=== PATIENT | female | born 1950 | race Caucasian/White ===

== ENCOUNTER 2017-03-26 16:40 | Emergency (ER) | payer MEDICARE ==
[2017-03-26 16:56] VITALS: BP 145/80
--- NOTE | 2017-03-26 17:13 | UC ---
Respiratory Complaint HPI - HPI Summary HPI Summary: C/O cough with SOB, some left sided CP under the left axilla. Fevers, sweats, chills, sinus FLORES, ST, neck glands. Decreased appetite. Sputum has gone from yellow to green. - History of Current Complaint Stated Complaint: FLU LIKE SYMPTOMS Time Seen by Provider: 03/26/17 16:48 Hx Obtained From: Patient Hx Last Menstrual Period: years ago Onset/Duration: Gradual Onset, Lasting Weeks - 1, Worse Since - onset Timing: Constant Severity Initially: Mild Severity Currently: Moderate Character: Cough: Productive Aggravating Factors: Deep Breaths Associated Signs And Symptoms: Positive: Dyspnea, Fever, Chills, Pleuritic Chest Pain, URI, Nasal Congestion, Sinus Discomfort Related History: Seasonal Allergies - Risk Factors Pulmonary Embolism Risk Factors: Negative Cardiac Risk Factors: Negative - Allergies/Home Medications Allergies/Adverse Reactions: Allergies Allergy/AdvReac Type Severity Reaction Status Date / Time Codeine Allergy Vomiting Verified 03/26/17 16:56 Erythromycin Allergy Vomiting Verified 03/26/17 16:56 food color Allergy Congestion Uncoded 03/26/17 16:56 PMH/Surg Hx/FS Hx/Imm Hx Endocrine History: Dyslipidemia GI/ History: Gastroesophageal Reflux - Surgical History Surgical History: Yes Surgery Procedure, Year, and Place: 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 POLYCYSTIC RT OVARY REMOVED. TUBAL LIGATION. HERNIA 2007 and others right and left abdomen with mesh-last hernia surgery was 08/[address] Ventura [facility] ; 11/13/13 Left hip replacement Francia MICHAEL, right hip replacement. TONSILS AGE 4; right hip replacement 02/2014. APPENDECTOMY. ILEOSTOMY AT [facility] 02/27/07, and reversal - Family History Known Family History: Positive: Diabetes - Social History Occupation: Retired Lives: With Family Alcohol Use: Rare Substance Use Type: None Smoking Status (MU): Former Smoker - Immunization History Most Recent Influenza Vaccination: none Review of Systems Constitutional: Fever ENT: Sore Throat, Sinus Congestion, Sinus Pain/Tenderness Respiratory: Shortness Of Breath, Cough Cardiovascular: Chest Pain - left sided under the axilla Neurological: Numbness - intermittant in the right palm. Is Patient Immunocompromised?: No All Other Systems Reviewed And Are Negative: Yes Physical Exam Triage Information Reviewed: Yes Appearance: No Pain Distress, Well-Nourished, Ill-Appearing Vital Signs: Initial Vital Signs Temp 100.9 F 03/26/17 16:44 Pulse 104 03/26/17 16:44 Resp 18 03/26/17 16:44 BP 145/80 03/26/17 16:44 Pulse Ox 100 03/26/17 16:44 Vital Signs Reviewed: Yes Eyes: Positive: Conjunctiva Clear ENT: Positive: Pharynx normal, Nasal congestion, TMs normal, Sinus tenderness - right frontal Neck exam: Normal Respiratory: Positive: Wheezing - expiratory wheeze with coughing Cardiovascular: Positive: Murmur:Sys:Grade _?_/ - 2 Musculoskeletal: Positive: Edema @ - trace pretibial edema bilaterally Neurological Exam: Normal - pinprick sensation normal in the right arm and hand. Psychological Exam: Normal Skin Exam: Normal UC Diagnostic Evaluation - Laboratory O2 Sat by Pulse Oximetry: 100 Respiratory Course/Dx - Differential Dx/Diagnosis Differential Diagnosis/HQI/PQRI: Asthma, Influenza, Lower Resp Infection, Sinusitis Provider Diagnoses: Acute URI. Acute sinusitis. Acute bronchospasm Discharge - Discharge Plan Condition: Stable Disposition: HOME Prescriptions: Amoxicillin PO (*) [Amoxicillin 875 MG (*)] 875 mg PO BID #20 tab predniSONE TAB* [Deltasone TAB*] 20 mg PO DAILY #18 tab Patient Education Materials: Sinusitis (ED), Amoxicillin (By mouth), Bronchospasm (ED), Prednisone (By mouth), How to Use a Metered-Dose Inhaler and a Spacer (ED) Referrals: Isabel Grady PA [Primary Care Provider] -
[2017-03-26] MEDS ORDERED: Albuterol 2.5 MG/3 ML NEB.SOL* (0.083%) INH ONE (17:16)
[2017-03-26] MEDS ORDERED: Ipratropium 0.5MG/2.5ML NEB* 0.5 MG/2.5 ML NEB.SOLN INH ONE (17:16)
--- NOTE | 2017-03-26 18:10 | RAD ---
INDICATION: Shortness of breath and wheezing. COMPARISON: There are no prior studies available for comparison. TECHNIQUE: Dual-energy PA and lateral views of the chest were obtained. FINDINGS: The heart is within normal limits in size. Mediastinal and hilar contours appear within normal limits. The lungs are slightly hyperinflated. There is a linear density at the left lung base most consistent with atelectasis. The lungs are otherwise clear. No pleural effusion is seen. IMPRESSION: LEFT BASILAR SUBSEGMENTAL ATELECTASIS. THE LUNGS ARE OTHERWISE CLEAR.
[2017-03-26] MEDS ORDERED: Albuterol HFA INHALER* 8 gm MDI INH ONE (18:22)
[2017-03-26] MEDS ORDERED: Amoxicillin PO (*) 500 MG CAP PO ONE (18:24)
[2017-03-26] MEDS ORDERED: predniSONE TAB* 20 MG PO ONE (18:28)
== END 2017-03-26 18:57 | disposition home or self-care (01) ==
LOC: UCCORT 16:40
DX: J06.9 Acute upper respiratory infection, unspecified (principal); J01.90 Acute sinusitis, unspecified; J98.01 Acute bronchospasm; Z87.891 Personal history of nicotine dependence
CPT/HCPCS: 71046; 93005; 99213; A9270-GY; G0463; J7512; J7644

== ENCOUNTER 2017-04-17 17:16 | Emergency (ER) | payer MEDICARE ==
[2017-04-17 17:44] VITALS: BP 127/67
--- NOTE | 2017-04-17 18:16 | UC ---
UC General HPI - HPI Summary HPI Summary: Pt presents with c/o left lower back pain, sinus pressure, cough, chills and generalized malaise X 2-3 days. Pt was treated on 03/26/17 for sinusitis and given amox 875 for ten days and prednisone. - History of Current Complaint Chief Complaint: UCGeneralIllness Stated Complaint: LEFT SIDE FLANK,VOMITING,FEVER,COUGH Time Seen by Provider: 04/17/17 17:52 Hx Obtained From: Patient Hx Last Menstrual Period: years ago Onset/Duration: Gradual Onset, Lasting Days, Still Present Timing: Constant Onset Severity: Moderate Current Severity: Mild Pain Intensity: 6 Associated Signs & Symptoms: Positive: Back Pain, Cough Related Hx: Recent Illness - Allergy/Home Medications Allergies/Adverse Reactions: Allergies Allergy/AdvReac Type Severity Reaction Status Date / Time Codeine Allergy Vomiting Verified 04/17/17 17:44 Erythromycin Allergy Vomiting Verified 04/17/17 17:44 food color Allergy Congestion Uncoded 04/17/17 17:44 PMH/Surg Hx/FS Hx/Imm Hx Previously Healthy: Yes - Surgical History Surgical History: Yes Surgery Procedure, Year, and Place: 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 POLYCYSTIC RT OVARY REMOVED. TUBAL LIGATION. HERNIA 2007 and others right and left abdomen with mesh-last hernia surgery was 08/[address] Ventura [facility] ; 11/13/13 Left hip replacement Francia MICHAEL, right hip replacement. TONSILS AGE 4; right hip replacement 02/2014. APPENDECTOMY. ILEOSTOMY AT [facility] 02/27/07, and reversal - Family History Known Family History: Positive: Diabetes - Social History Occupation: Retired Lives: With Family Alcohol Use: Rare Substance Use Type: None Smoking Status (MU): Former Smoker Have You Smoked in the Last Year: No - Immunization History Most Recent Influenza Vaccination: none Review of Systems Constitutional: Chills, Fatigue Skin: Negative Eyes: Negative ENT: Sinus Congestion, Sinus Pain/Tenderness Respiratory: Cough Cardiovascular: Negative Gastrointestinal: Negative Genitourinary: Negative Motor: Negative Neurovascular: Negative Musculoskeletal: Myalgia Neurological: Headache Psychological: Negative Is Patient Immunocompromised?: No All Other Systems Reviewed And Are Negative: Yes Physical Exam Triage Information Reviewed: Yes Appearance: Well-Appearing Vital Signs: Initial Vital Signs Temp 99.7 F 04/17/17 17:33 Pulse 91 01/29/18 17:33 Resp 17 04/17/17 17:33 BP 127/67 04/17/17 17:33 Pulse Ox 95 04/17/17 17:33 Vital Signs Reviewed: Yes Eye Exam: Normal ENT Exam: Other ENT: Positive: Sinus tenderness - frontal, maxillary Dental Exam: Normal Neck exam: Normal Respiratory Exam: Normal Respiratory: Positive: Normal breath sounds, No respiratory distress Cardiovascular Exam: Normal Abdominal Exam: Normal Abdomen Description: Positive: Nontender Musculoskeletal Exam: Normal Neurological: Positive: Other: - tenderness left lower back, proximal sciatic. Course/Dx - Course Course Of Treatment: Pt initial presented with c/o of left flank pain. Therefore, UA was ordered. upon exam pt revealed that pain is along waist line just above left buttock. with examination tenderness elicited at proximal sciatic. I also discussed with the pt the need to follo wup with a PCP . Pt sated she has had a weight loss of 15 lbs over 1 year without any changes in lifestyle other than activity level and minor change in dietary intake. - Differential Dx - Multi-Symptom Differential Diagnoses: Urinary Tract Infection Provider Diagnoses: sinusitis. cough. low back pain secondary to cough Discharge - Discharge Plan Condition: Stable Disposition: HOME Prescriptions: Benzonatate CAP* [Tessalon 100 MG CAP*] 100 mg PO Q8H PRN #30 cap PRN Reason: Cough predniSONE TAB* [Deltasone TAB*] 40 mg PO DAILY #8 tab Sulfamethox/Trimethoprim DS* [Bactrim DS 800/160 TAB*] 1 tab PO Q12H #20 tab Patient Education Materials: Sinusitis (ED), Low Back Strain (ED), Hematuria ( ED) Referrals: [facility] [place] [facility] [Outside] Isabel Grady PA [Primary Care Provider] - If Needed Additional Instructions: Please establish care with a PCP for continued health maintenance and testing. Please note that if your symptoms do not improve please seek care as soon as possible.
== END 2017-04-17 18:26 | disposition home or self-care (01) ==
LOC: UCCORT 17:16
DX: J32.9 Chronic sinusitis, unspecified (principal); R05 Cough; M54.5 Low back pain; R53.81 Other malaise; Z96.643 Presence of artificial hip joint, bilateral; Z88.1 Allergy status to other antibiotic agents; Z88.5 Allergy status to narcotic agent; Z87.891 Personal history of nicotine dependence
CPT/HCPCS: 81003; 87077; 87086; 99212; G0463

== ENCOUNTER 2018-03-02 09:49 | Emergency (ER) | payer MEDICARE ==
[2018-03-02 10:08] VITALS: BP 124/74
--- NOTE | 2018-03-02 10:23 | UC ---
Respiratory Complaint HPI - HPI Summary HPI Summary: cough x 3 days chest tightness, cough is productive , yellow sputum nasal congestion , bilateral ear pain no fever, no chills + SOB - History of Current Complaint Chief Complaint: UCRespiratory Stated Complaint: COUGH CONGESTION SORE THROAT Time Seen by Provider: 03/02/18 10:10 Hx Obtained From: Patient Hx Last Menstrual Period: years ago Onset/Duration: Gradual Onset, Lasting Days - 3, Still Present Timing: Constant Severity Initially: Moderate Severity Currently: Moderate Pain Intensity: 3 Character: Cough: Productive - yellow Aggravating Factors: Exertion, Deep Breaths Alleviating Factors: Nothing Associated Signs And Symptoms: Positive: Chills, Wheezing, URI, Nasal Congestion. 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 POLYCYSTIC RT OVARY REMOVED. TUBAL LIGATION. HERNIA 2007 and others right and left abdomen with mesh-last hernia surgery was 08/[address] Ventura [facility] ; 11/13/13 Left hip replacement Francia MICHAEL, right hip replacement. TONSILS AGE 4; right hip replacement 02/2014. APPENDECTOMY. ILEOSTOMY AT [facility] 02/27/07, and reversal - Family History Known Family History: Positive: Diabetes - Social History Alcohol Use: Rare Substance Use Type: None Smoking Status (MU): Former Smoker Length of Time of Smoking/Using Tobacco: <1 PPD x 12 Years Have You Smoked in the Last Year: No When Did the Patient Quit Smoking/Using Tobacco: ~1997 - Immunization History Most Recent Influenza Vaccination: none Review of Systems All Other Systems Reviewed And Are Negative: Yes Constitutional: Positive: Negative Skin: Positive: Negative Eyes: Positive: Negative ENT: Positive: Ear Ache, Nasal Discharge, Sinus Congestion, Sinus Pain/ Tenderness Respiratory: Positive: Shortness Of Breath, Cough Cardiovascular: Positive: Negative Gastrointestinal: Positive: Negative Is Patient Immunocompromised?: No Physical Exam Triage Information Reviewed: Yes Appearance: Well-Appearing, No Pain Distress, Well-Nourished Vital Signs: Initial Vital Signs Temp 98.8 F 03/02/18 10:02 Pulse 89 03/02/18 10:02 Resp 16 03/02/18 10:02 BP 124/74 03/02/18 10:02 Pulse Ox 99 03/02/18 10:02 Vital Signs Reviewed: Yes Eye Exam: Normal Eyes: Positive: Conjunctiva Clear ENT: Positive: Normal ENT inspection, Hearing grossly normal, Pharynx normal, Nasal congestion, TMs normal. Negative: TM bulging, TM dull, TM red Neck: Positive: Supple, Nontender, No Lymphadenopathy Respiratory: Positive: Chest non-tender, Lungs clear, Normal breath sounds Cardiovascular: Positive: RRR, No Murmur, Pulses Normal Skin Exam: Normal UC Diagnostic Evaluation - Laboratory O2 Sat by Pulse Oximetry: 99 Respiratory Course/Dx - Differential Dx/Diagnosis Provider Diagnosis: Bronchitis Discharge - Sign-Out/Discharge Documenting (check all that apply): Patient Departure All imaging exams completed and their final reports reviewed: No Studies - Discharge Plan Condition: Stable Disposition: HOME Prescriptions: Albuterol HFA INHALER* [Ventolin HFA Inhaler*] 2 puff INH Q6H PRN #1 mdi PRN Reason: Wheezing Benzonatate CAP* [Tessalon 100 MG CAP*] 100 mg PO TID #15 cap Patient Education Materials: Acute Bronchitis (ED) Referrals: No Primary Care Phys,NOPCP [Primary Care Provider] - 7 Days - Billing Disposition and Condition Condition: STABLE Disposition: Home
== END 2018-03-02 10:25 | disposition home or self-care (01) ==
LOC: UCCORT 09:49
DX: J40 Bronchitis, not specified as acute or chronic (principal); Z88.5 Allergy status to narcotic agent; Z88.1 Allergy status to other antibiotic agents; Z87.891 Personal history of nicotine dependence
CPT/HCPCS: 36415; 86803; 99212; G0463

== ENCOUNTER 2018-09-09 08:22 | Emergency (ER) | payer MEDICARE, OTHER ==
[2018-09-09 09:15] VITALS: BP 154/81
[2018-09-09] MEDS ORDERED: Triamcinolone Acetonide* 40 MG/ML 1 ML VIAL IM ONE (10:20)
--- NOTE | 2018-09-09 10:24 | UC ---
Skin Complaint HPI - HPI Summary HPI Summary: 68 yo markely pruritic rash that started day after a walk in a field - History of Current Complaint Chief Complaint: UCRash Time Seen by Provider: 09/09/18 10:12 Stated Complaint: SKIN CONCERN (FACE) Hx Obtained From: Patient Hx Last Menstrual Period: years ago Onset/Duration: Gradual Onset Skin Exposure Onset/Duration: Hours Ago Timing: Constant Onset Severity: Mild Current Severity: Moderate Pain Intensity: 0 Pain Scale Used: 0-10 Numeric Location: Face, Hand (Right), Other - chest/neck left arm Character: Swelling, Pruritus, Redness Aggravating Factor(s): Touch Alleviating Factor(s): Nothing Associated Signs & Symptoms: Positive: Rash Related History: Other: - possible reaction to plants - Allergy/Home Medications Allergies/Adverse Reactions: Allergies Allergy/AdvReac Type Severity Reaction Status Date / Time codeine AdvReac Vomiting Verified 09/09/18 09:10 erythromycin base AdvReac Vomiting Verified 09/09/18 09:10 Home Medications: Home Medications Otc Allergy Medication 1 tab PO ONCE 09/09/18 [History] Skin Cleanser Comb No.41 [Tecnu] 355 ml TP SEE INSTRUCTIONS PRN 09/09/18 [ History Confirmed 09/09/18] PMH/Surg Hx/FS Hx/Imm Hx Previously Healthy: Yes - Surgical History Surgical History: Yes Surgery Procedure, Year, and Place: Bilateral TKA, [facility]; 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 POLYCYSTIC RT OVARY REMOVED. TUBAL LIGATION. HERNIA 2007 and others right and left abdomen with mesh-last hernia surgery was 08/[address] Ventura [facility] ; 11/13/13 Left hip replacement Francia MICHAEL, right hip replacement. TONSILS AGE 4; right hip replacement 02/2014. APPENDECTOMY. ILEOSTOMY AT [facility] 02/27/07, and reversal - Family History Known Family History: Positive: Hypertension, Diabetes - Social History Alcohol Use: Rare Substance Use Type: None Smoking Status (MU): Former Smoker Length of Time of Smoking/Using Tobacco: <1 PPD x 12 Years Have You Smoked in the Last Year: No When Did the Patient Quit Smoking/Using Tobacco: ~1997 - Immunization History Most Recent Influenza Vaccination: none Review of Systems All Other Systems Reviewed And Are Negative: Yes Constitutional: Positive: Negative Skin: Positive: Rash Eyes: Positive: Negative ENT: Positive: Negative Respiratory: Positive: Negative Cardiovascular: Positive: Negative Gastrointestinal: Positive: Negative Genitourinary: Positive: Negative Motor: Positive: Negative Musculoskeletal: Positive: Negative, Arthralgia Neurological: Positive: Negative Psychological: Positive: Negative Physical Exam Triage Information Reviewed: Yes Appearance: Well-Appearing, No Pain Distress, Well-Nourished Vital Signs: Initial Vital Signs Temp 97.4 F 09/09/18 09:08 Pulse 70 09/09/18 09:08 Resp 16 09/09/18 09:08 BP 154/81 09/09/18 09:08 Pulse Ox 100 09/09/18 09:08 Vital Signs Reviewed: Yes Eyes: Positive: Conjunctiva Clear ENT: Positive: Hearing grossly normal. Negative: Nasal congestion, Nasal drainage, Trismus, Muffled voice, Hoarse voice Neck: Positive: Supple, Nontender, No Lymphadenopathy Respiratory: Positive: Lungs clear, Normal breath sounds, No respiratory distress, No accessory muscle use Cardiovascular: Positive: RRR, No Murmur Neurological: Positive: Alert Psychological Exam: Normal Skin: Positive: Rashes Images Head: 1 - rash right cheek , red raised 2 - linear rash 3 - linear rash Hands: 1 - weeping rash Front/Back of Body, Lg ([place]): 1 - rash/oozing 2 - rash/oozing Course/Dx - Course Course Of Treatment: can not rule out phytophotodermatitis - Diagnoses Provider Diagnosis: Contact dermatitis Discharge - Sign-Out/Discharge Documenting (check all that apply): Patient Departure All imaging exams completed and their final reports reviewed: No Studies - Discharge Plan Condition: Stable Disposition: HOME Patient Education Materials: Contact Dermatitis (ED) Referrals: No Primary Care Phys,NOPCP [Primary Care Provider] - Additional Instructions: you had a steroid shot here (40 mg of kenalog) frequent cool compresses with epsom salt solution benadryl (otc) 1 4x day for itching I suggest you see your MD mid week for recheck if not improved - Billing Disposition and Condition Condition: STABLE Disposition: Home
== END 2018-09-09 10:48 | disposition home or self-care (01) ==
LOC: UCCORT 08:22
DX: L25.9 Unspecified contact dermatitis, unspecified cause (principal); Z87.891 Personal history of nicotine dependence
CPT/HCPCS: 96372; 99211; G0463; J3301

== ENCOUNTER 2019-03-01 16:01 | Emergency (ER) | payer MEDICARE, OTHER ==
[2019-03-01 16:28] VITALS: BP 131/83
--- NOTE | 2019-03-01 16:52 | UC ---
Back Pain HPI - HPI Summary HPI Summary: Pt present with c/o sudden onset of low back pain when she woke this morning. Pt reports that she has been putting up shaka decorations and has been lifting, bending and reaching for several hours over the last two days. - History of Current Complaint Chief Complaint: UCBackPain Stated Complaint: SEVERE LOW BACK PAIN Time Seen by Provider: 03/01/19 16:32 Hx Obtained From: Patient Hx Last Menstrual Period: N/A ?: No Onset/Duration: Sudden Onset - woke this morning with low back pain Timing: Constant Severity Initially: Moderate Severity Currently: Moderate Pain Intensity: 8 Back Pain: Is Discrete @ - low back, Radiates To - left side Character: Dull, Aching, Stiffness Aggravating Factor(s): Movement, Lifting Alleviating Factor(s): Rest, Position Associated Signs And Symptoms: Positive: Negative - Risk Factors AAA Risk Factors: Negative TAD Risk Factors: Negative Cauda Equina Risk Factors: Negative Epidural Abscess Risk Factors: Negative - Allergies/Home Medications Allergies/Adverse Reactions: Allergies Allergy/AdvReac Type Severity Reaction Status Date / Time codeine AdvReac Vomiting Verified 03/01/19 16:28 erythromycin base AdvReac Vomiting Verified 03/01/19 16:28 Home Medications: Home Medications Tylenol Or Ibuprofen 1 tab ONCE 03/01/19 [History Confirmed 03/01/19] PMH/Surg Hx/FS Hx/Imm Hx Previously Healthy: Yes - Surgical History Surgical History: Yes Surgery Procedure, Year, and Place: right knee/tear, [place]; 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 POLYCYSTIC RT OVARY REMOVED. TUBAL LIGATION. HERNIA 2007 and others right and left abdomen with mesh-last hernia surgery was 08/[address] Ventura [facility] ; 11/13/13 Left hip replacement Francia MICHAEL,. TONSILS AGE 4; right hip replacement 02/2014. APPENDECTOMY. ILEOSTOMY AT [facility] 02/27/07, and reversal - Family History Known Family History: Positive: Hypertension, Diabetes - Social History Occupation: Retired Lives: With Family Alcohol Use: Rare Substance Use Type: None Smoking Status (MU): Former Smoker Length of Time of Smoking/Using Tobacco: <1 PPD x 12 Years Have You Smoked in the Last Year: No When Did the Patient Quit Smoking/Using Tobacco: ~1997 - Immunization History Most Recent Influenza Vaccination: none Review of Systems All Other Systems Reviewed And Are Negative: Yes Constitutional: Positive: Negative Skin: Positive: Negative Eyes: Positive: Negative ENT: Positive: Negative Respiratory: Positive: Negative Cardiovascular: Positive: Negative Gastrointestinal: Positive: Negative Genitourinary: Positive: Negative Motor: Positive: Negative Neurovascular: Positive: Negative Musculoskeletal: Positive: Myalgia - low back pain Neurological: Positive: Negative Psychological: Positive: Negative Is Patient Immunocompromised?: No Physical Exam Triage Information Reviewed: Yes Appearance: Pain Distress - with movement Vital Signs: Initial Vital Signs Temp 98.4 F 03/01/19 16:18 Pulse 84 03/01/19 16:18 Resp 16 03/01/19 16:18 BP 131/83 03/01/19 16:18 Pulse Ox 99 03/01/19 16:18 Vital Signs Reviewed: Yes Eye Exam: Normal ENT: Positive: Hearing grossly normal Respiratory: Positive: No respiratory distress Musculoskeletal Exam: Other - low back pain Musculoskeletal: Positive: ROM Limited @ - low back Neurological Exam: Normal Psychological Exam: Normal Skin Exam: Normal Back Pain Course/Dx - Differential Dx/Diagnosis Differential Diagnosis/HQI/PQRI: Strain Provider Diagnosis: Low back pain Discharge ED - Sign-Out/Discharge Documenting (check all that apply): Patient Departure All imaging exams completed and their final reports reviewed: No Studies - Discharge Plan Condition: Stable Disposition: HOME Prescriptions: Cyclobenzaprine TAB* [Flexeril 10 MG TAB*] 10 mg PO TID PRN #12 tab PRN Reason: Pain - Mild Patient Education Materials: Acute Low Back Pain (ED), Safe Use of NSAIDs (ED) , Lower Back Exercises (ED) Referrals: [facility] [place] [facility] [place]Outside] - If Needed No Primary Care Phys,NOPCP [Primary Care Provider] - - Billing Disposition and Condition Condition: STABLE Disposition: Home - Attestation Statements Provider Attestation: I was available for consult. This patient was seen by the GA. The patient was not presented to, seen by, or examined by me. -Stevenson
== END 2019-03-01 17:01 | disposition home or self-care (01) ==
LOC: UCCORT 16:01
DX: M54.5 Low back pain (principal); Z87.891 Personal history of nicotine dependence; Z88.1 Allergy status to other antibiotic agents; Z88.5 Allergy status to narcotic agent
CPT/HCPCS: 81003; 99212; G0463